=== PATIENT | male | born 1985 | race Caucasian/White ===

== ENCOUNTER 2017-03-30 17:11 | Emergency (ER) | payer MEDICAID, OTHER ==
[~2017-03-30] VITALS: Ht 180.3 cm; Wt 90.9 kg
[~2017-03-30 17:11] MED LIST: LISI-662 PO
[2017-03-30] MEDS ORDERED: FLUMAZENIL 0.1 MG/ML 5 ML VIAL IVP ONE (17:57)
[2017-03-30] MEDS ORDERED: NALOXONE HCL 1 MG/ML 2 ML SYG ONE (17:57)
[2017-03-30] MEDS ORDERED: LIDOCAINE HCL BUFFERED 1% 20 ML VIAL INJ ONE (18:00)
[2017-03-30] MEDS ORDERED: MIDAZOLAM HCL 2 MG/2 ML VIAL IVP ONE (18:00)
[2017-03-30] MEDS ORDERED: POVIDONE-IODINE 10% 120 ML SOLUTION TP ONE (18:00)
[2017-03-30] MEDS ORDERED: FentaNYL CITRATE-PF 100 MCG/2 ML VIAL IVP ONE (18:00)
[2017-03-30] MEDS ORDERED: DiphenhydrAMINE HCL 50 MG/ML VIAL ONE (18:19)
[2017-03-30 20:06] VITALS: BP 132/81
== END 2017-03-30 20:16 | disposition home or self-care (01) ==
LOC: EMS 17:12
DX: S63.064A Dislocation of metacarpal (bone), proximal end of right hand, initial encounter (principal); I10 Essential (primary) hypertension; Z88.5 Allergy status to narcotic agent; W22.8XXA Striking against or struck by other objects, initial encounter; Y93.89 Activity, other specified; Y92.89 Other specified places as the place of occurrence of the external cause; Y99.8 Other external cause status
CPT/HCPCS: 26700; 73110; 73130; 96374; 96375; 99285; J1200; J2250; J2310; J3010; J3490 ×2; 99152